=== PATIENT | female | born 1960 | race Caucasian/White ===

== ENCOUNTER 2017-05-25 08:36 | Emergency (ER) | payer BC ==
[2017-05-25 08:57] VITALS: BP 123/62
--- NOTE | 2017-05-25 09:08 | UC ---
Throat Pain/Nasal Figueroa HPI - HPI Summary HPI Summary: c/o sore throat, nausea, cough for past few days. was at pcp during week and strep test negative but she says culture done +. taking otc ibuprofen for chills with little relief. - History of Current Complaint Chief Complaint: UCGeneralIllness Stated Complaint: HEADACHE, SORE THROAT Time Seen by Provider: 05/25/17 08:56 Hx Obtained From: Patient Onset/Duration: Sudden Onset Severity: Moderate Cough: Nonproductive Associated Signs & Symptoms: Positive: Fever - Epiglottits Risk Factors Epiglottis Risk Factors: Negative - Allergies/Home Medications Allergies/Adverse Reactions: Allergies Allergy/AdvReac Type Severity Reaction Status Date / Time Penicillins Allergy Intermediate Hives Verified 05/25/17 08:52 Sulfamethoxazole Allergy Hives Verified 05/25/17 08:52 w/Trimethoprim [From Bactrim] Home Medications: Home Medications Ibuprofen TAB* [Advil TAB*] 600 mg PO Q6H PRN 05/25/17 [History Confirmed ] Levothyroxine TAB* [Synthroid 100 MCG TAB*] mcg PO DAILY 05/25/17 [History] Liothyronine TAB* [Cytomel TAB*] mcg PO DAILY 05/25/17 [History] PMH/Surg Hx/FS Hx/Imm Hx Previously Healthy: Yes Endocrine History: Hypothyroidism - Surgical History Surgical History: Yes Surgery Procedure, Year, and Place: D&C. BREAST BIOPSY - Social History Alcohol Use: None Substance Use Type: None Smoking Status (MU): Former Smoker Length of Time of Smoking/Using Tobacco: in high school When Did the Patient Quit Smoking/Using Tobacco: 30 YRS - Immunization History Most Recent Influenza Vaccination: Not the 2017/2017 Season Review of Systems Constitutional: Fever, Chills, Fatigue Skin: Negative Eyes: Negative ENT: Sore Throat, Ear Ache Respiratory: Cough - nonproductive Cardiovascular: Negative Gastrointestinal: Negative Genitourinary: Negative Motor: Negative Neurovascular: Negative Musculoskeletal: Arthralgia Neurological: Negative Psychological: Negative Is Patient Immunocompromised?: No All Other Systems Reviewed And Are Negative: Yes Physical Exam Triage Information Reviewed: Yes Appearance: Ill-Appearing Vital Signs: Initial Vital Signs Temp 98 F 05/25/17 08:49 Pulse 68 05/25/17 08:49 Resp 16 05/25/17 08:49 BP 123/62 01/07/18 08:49 Pulse Ox 99 05/25/17 08:49 Vital Signs Reviewed: Yes Eye Exam: Normal ENT: Positive: Pharyngeal erythema Neck: Positive: Supple Respiratory Exam: Normal Cardiovascular Exam: Normal Neurological Exam: Normal Psychological Exam: Normal Skin Exam: Normal Throat Pain/Nasal Course/Dx - Course Course Of Treatment: + with strep. based on clinical findings will treat with for strep - not going to swab today. continue ibuprofen every 6 hours prn for pain/fever. take abx as directed - discussed use and common side effects of med. increase fluid intake daily while on abx to prevent dehydration. f/u pcp 1 week if symptoms not resolving - Differential Dx/Diagnosis Provider Diagnoses: strep throat Discharge - Discharge Plan Condition: Good Disposition: HOME Prescriptions: Azithromycin TAB* [Zithromax TAB (Z-SUNDAR) 250 mg #6 tabs] 2 tab PO .TODAY, THEN 1 DAILY #1 sundar Patient Education Materials: Strep Throat (ED) Referrals: Gita Enrique MD [Primary Care Provider] - 1 Week
== END 2017-05-25 09:28 | disposition home or self-care (01) ==
LOC: UCCORT 08:36
DX: J02.0 Streptococcal pharyngitis (principal); E03.9 Hypothyroidism, unspecified; Z87.891 Personal history of nicotine dependence
CPT/HCPCS: 99212; G0463

== ENCOUNTER 2019-06-08 17:42 | Emergency (ER) | payer BC ==
--- NOTE | 2019-06-08 18:38 | UC ---
Ear Complaint HPI - HPI Summary HPI Summary: 59 yo female presents with right ear pain. She tells me that she is getting over a cold consisting of sinus congestion and dry cough for the last week. Today developed right ear pain that has been worsening throughout the day. Has decreased hearing in this ear. Denies fever, chills, trauma, drainage. Nothing OTC for her symptoms. - History of Current Complaint Stated Complaint: EAR COMPLAINT Time Seen by Provider: 06/08/19 18:38 Hx Obtained From: Patient Onset/Duration: Gradual Onset Severity Initially: Moderate Severity Currently: Moderate Pain Intensity: 5 Pain Scale Used: 0-10 Numeric - Allergies/Home Medications Allergies/Adverse Reactions: Allergies Allergy/AdvReac Type Severity Reaction Status Date / Time Penicillins Allergy Intermediate Hives Verified 06/08/19 18:44 Sulfa (Sulfonamide Allergy Intermediate Hives Verified 06/08/19 18:44 Antibiotics) Home Medications: Home Medications Acetaminophen [Tylenol Extra Strength] 500 mg PO ONCE 06/08/19 [History Confirmed 06/08/19] PMH/Surg Hx/FS Hx/Imm Hx Endocrine History: Hypothyroidism - Surgical History Surgical History: Yes Surgery Procedure, Year, and Place: D&C. BREAST BIOPSY - Family History Known Family History: Positive: Non-Contributory - Social History Occupation: Employed Full-time Lives: With Family Alcohol Use: None Substance Use Type: None Smoking Status (MU): Former Smoker Length of Time of Smoking/Using Tobacco: in high school When Did the Patient Quit Smoking/Using Tobacco: 30 YRS - Immunization History Most Recent Influenza Vaccination: Not the 2017/2017 Season Review of Systems All Other Systems Reviewed And Are Negative: No Constitutional: Positive: Negative Skin: Positive: Negative Eyes: Positive: Negative ENT: Positive: Ear Ache Respiratory: Positive: Negative Cardiovascular: Positive: Negative Gastrointestinal: Positive: Negative Neurological: Positive: Negative Psychological: Positive: Negative Physical Exam - Summary Physical Exam Summary: GENERAL: NAD. WDWN. No pain distress. SKIN: No rashes, sores, lesions, or open wounds. HEENT: Head: AT/NC Eyes: EOM intact. Conjunctiva clear without inflammation or discharge. Ears: Hearing grossly normal. RIGHT TM with mild erythema and bulging. No canal edema or drainage. LEFT TM WNL and intact Nose: Nasal mucosa pink and moist. NTTP maxillary and frontal sinus. Throat: Posterior oropharynx without exudates, erythema, or tonsillar enlargement. Uvula midline. NECK: Supple. Nontender. No lymphadenopathy. CHEST: CTAB. No r/r/w. No accessory muscle use. Breathing comfortably and in no distress. CV: RRR. Without m/r/g. Pulses intact. NEURO: Alert. PSYCH: Age appropriate behavior. Triage Information Reviewed: Yes Vital Signs: Vital Signs: Temp Pulse Resp BP Pulse Ox 97.8 F 77 17 117/73 100 06/08/19 18:41 06/08/19 18:41 06/08/19 18:41 06/08/19 18:41 06/08/19 18:41 Vital Signs Reviewed: Yes Ear Complaint Course/Dx - Course Course Of Treatment: RIGHT otitis media - Differential Dx/Diagnosis Provider Diagnosis: Otitis media Discharge ED - Sign-Out/Discharge Documenting (check all that apply): Patient Departure All imaging exams completed and their final reports reviewed: No Studies - Discharge Plan Condition: Stable Disposition: HOME Prescriptions: Azithromycin TAB* [Zithromax TAB (Z-SUDNAR) 250 mg #6 tabs] 2 tab PO .TODAY, THEN 1 DAILY #1 sundar Patient Education Materials: Ear Infection (ED) Referrals: Gita Enrique MD [Primary Care Provider] - Additional Instructions: If you develop a fever, shortness of breath, chest pain, new or worsening symptoms - please call your PCP or go to the ED immediately. - Billing Disposition and Condition Condition: STABLE Disposition: Home
[2019-06-08 18:43] VITALS: BP 117/73
== END 2019-06-08 18:54 | disposition home or self-care (01) ==
LOC: UCCORT 17:42
DX: H66.91 Otitis media, unspecified, right ear (principal); Z88.0 Allergy status to penicillin; Z88.2 Allergy status to sulfonamides; Z87.891 Personal history of nicotine dependence
CPT/HCPCS: 99212; G0463